=== PATIENT | male | born 1960 | race Caucasian/White ===

== ENCOUNTER → 2024-01-01 10:04 | Outpatient (CLI) | payer OTHER, SELFPAY ==
[2024-01-01 12:14] LABS: Add Manual Diff / Slide Review NO; Basophils Absolute Auto 100 /uL (0-100); Basophils Percent Auto 0.7 % (0-2); Eosinophils Absolute Auto 200 /uL (0-450); Eosinophils Percent Auto 2.2 % (2-4); Hematocrit 43.5 % (41-53); Hemoglobin 14.5 g/dL (13.5-17.5); Lymphocytes Absolute Auto 3100 /uL (1100-4500); Lymphocytes Percent Auto 42.5 % (25-40); Mean Corpuscular HGB Conc 33.4 % (30-36); Mean Corpuscular Hemoglobin 29.3 PG (26-34); Mean Corpuscular Volume 87.5 fL (80-100); Monocytes Absolute Auto 700 /uL (0-900); Neutrophils Absolute Auto 3400 /uL (1500-7000); Neutrophils Percent Auto 45.6 % (50-75); Platelet Count 313 X10^3/uL (150-400); Red Blood Cell Count 4.97 X10^6/uL (4.5-5.9); Red Cell Distribution Width 14.4 % (11.6-14.8); White Blood Cell Count 7.4 X10^3/uL (4.5-11.0)
[2024-01-01 12:15] LABS: Appearance Urine UA CLEAR; Bilirubin Urine UA NEGATIVE (NEGATIVE); Color Urine UA YELLOW; Glucose Urine UA 1+ g/dL (Negative); Ketones Urine UA NEGATIVE (NEGATIVE); Leukocyte Esterase Urine UA NEGATIVE (NEGATIVE); Nitrite Urine UA NEGATIVE (Negative); Occult Blood Urine UA NEGATIVE (Negative); Protein Urine UA NEGATIVE (Negative); Specific Gravity Urine UA 1.015 (1.000-1.035); Urobilinogen Urine UA 0.2 E.U./dL (0.2)
[2024-01-01 12:17] LABS: Urine Volume 10mL (spun)
[2024-01-01 12:19] LABS: Bacteria Urine None Seen; Culture Indicated Urine Cult Not Indicated; RBC Urine None Seen (0-5/HPF); Squamous Epithelial Cell Urine None Seen (0-5/HPF); WBC Urine None Seen (0-5/HPF)
[2024-01-01 12:56] LABS: BUN Creatinine Ratio 25.9 (6-22); Blood Urea Nitrogen 15 mg/dL (9-20); Carbon Dioxide 23 mmol/L (22-32); Chloride 100 mmol/L (98-107); Estimated Glomerular Filt Rate > 60 mL/min (>60); Glucose 176 mg/dL (80-110); HEMOLYSIS < 15 (0-50); Potassium 4.1 mmol/L (3.4-5.1); Sodium 136 mmol/L (137-145)
== END ==
PROVIDERS: PCP Internal Medicine; Referring Provider Orthopaedic Surgery; Visit Provider Orthopaedic Surgery
DX: Z01.818 Encounter for other preprocedural examination (principal); Z01.812 Encounter for preprocedural laboratory examination; N39.0 Urinary tract infection, site not specified
CPT/HCPCS: 36415; 80048; 81001; 85025; 93005; 93010

== ENCOUNTER 2024-02-21 10:55 | Day surgery (SDC) | payer OTHER, SELFPAY ==
[2024-02-13 12:54] VITALS: BMI 34.1
--- NOTE | 2024-02-21 06:40 | DI.RAD.S_ITS ---
PROCEDURE: XR SHOULDER LT MIN 2V INDICATIONS: RTSA TECHNIQUE: To views of the shoulder were acquired. COMPARISON: None. FINDINGS: Bones: Postsurgical changes consistent with left shoulder reverse arthroplasty. Hardware components are in expected position. No fractures or dislocations. No suspicious bony lesions. Visualized ribs appear intact. Soft tissues: No suspicious soft tissue calcifications. IMPRESSION: Expected postsurgical change for left shoulder reverse arthroplasty. Dictated by: Nelsy Bailon MD, PhD on 02/21/2024 at 14:15 Approved by: Nelsy Bailon MD, PhD on 02/21/2024 at 14:16
[2024-02-21 11:22] VITALS: BP 163/123; PULSE 97; RESP 18; TEMP 37.2; O2SAT 97; BMI 33.6
--- NOTE | 2024-02-21 11:39 | PM.PREOP ---
Pre-operative Note Interval Note History & Physical reviewed/Exam performed by Physician: Yes Changes to H&P: No
[2024-02-21] MEDS: ACETAMINOPHEN 325 MG TABLET 975 MG PO (11:41)
[2024-02-21] MEDS: INSULIN REGULAR 100 UNIT/ML 3 ML VIAL 10 UNIT SUBCUT (11:56)
--- NOTE | 2024-02-21 12:06 | SUR.PREOP ---
Block start time [1204] . Monitoring initiated and maintained throughout procedure. Oxygen and medications given per anesthesiologist instructions. Patient remained stable throughout procedure, no adverse reactions noted. Block end time [1207].
[2024-02-21] MEDS: CEFAZOLIN 2 GM/100 ML PREMIX 100 ML IV (12:20)
[2024-02-21] MEDS: TRANEXAMIC ACID 1,000 MG VIAL 1000 MG INJ (12:25)
--- NOTE | 2024-02-21 12:53 | SUR.OPER ---
Beach chair on padded OR bed. Head on gel donut secured with tape over gauze. Non-operative arm secured <90 degrees abduction on padded arm board. Pillow under knees. Safety belt at thigh. Cloth tape over blanket over lower legs.
[2024-02-21] MEDS: BUPIVACAINE 0.25% (PF) 30 ML, EPINEPHrine 0.15 MG INJ (13:10)
[2024-02-21] MEDS: LACTATED RINGERS 1,000 ML 42 ML IV ×2 (13:24→14:07)
--- NOTE | 2024-02-21 13:40 | PM.OP.1 ---
Operative Date/Time/Diagnoses Date of procedure: 02/21/24 Time of procedure: 13:40 Pre-op diagnosis: Left rotator cuff arthropathy Post-op diagnosis: same Procedure & Clinicians Procedure: Left reverse total shoulder arthroplasty Same procedure as scheduled: Yes Indications: Indications: This is a 63-year-old male who has rotator cuff arthropathy. Symptoms have been present for years, insidious onset. Patient has failed a reasonable attempt at conservative therapy. After extensive discussion in clinic, they wished to go forward with surgery. Risks and benefits were described including the risk of infection, bleeding, damage to internal structures including nerves. We also discussed the risk of failure of surgery and the need for revision surgery as well as the risk of anesthesia. The patient expressed understanding with these risks and wished to go forward with surgery. Surgeon: Felix Senior Land Lease Information Clerk: Ritu Busby Operative Notes Findings: Findings: Osteoarthritis of the glenoid and humeral head as well as a defient rotator cuff as noted on preoperative imaging and under direct visualization Closure Type: primary Specimen(s): none sent Prosthetic devices, grafts, tissues, transplants, or devices: Tornier implants Base plate: standard 25 mm, +3 mm offset Glenosphere: Standard 36 mm Stem: Perform 3 Poly: +0, 10 degree Estimated Blood Loss (mL): 50 Procedure in detail: Patient was seen in the preoperative holding unit. The correct left shoulder was identified and marked with my initials. Again we discussed the risks and benefits of surgery and they wished to go forward with surgery. The patient was brought back to the operating room and placed supine on the operating table. Smooth endotracheal intubation was performed by anesthesia. All prominences were padded and they were placed into the beach chair position. Intravenous antibiotics were given. The left shoulder was then prepped with the standard sterile preparation and draping. A time-out was then performed in my initials were again identified on the correct shoulder. 1 g of IV tranexamic acid was given. A standard deltopectoral incision was made. Skin flaps were made. The cephalic vein was identified and retracted laterally. This was protected throughout the remainder of the case. Sharp dissection was made along the deltoid, subacromial and subcoracoid space to release adhesions. The conjoined tendon was identified and the axillary nerve was palpated and continuous using the tug test. It was protected throughout the remainder of the case. A brown retractor was placed underneath the deltoid muscle and a darach retractor underneath the conjoint tendon. The subscapularis muscle was ntoed to be torn. The biceps tendon was identified in the bicipital groove. This was released from its sheath, and taken from its origin on the glenoid and tied into the pectoralis tendon for a solid tenodesis. The coracohumeral ligament was released at the base of the coracoid. The shoulder was then dislocated. Osteophytes were removed using combination of rongeur and osteotome. The rotator cuff was noted to be insufficient. An intramedullary guide was used set at version of 20?. Using an oscillating saw a conservative humeral head cut was made. Impaction reamers were reamed up to a size 3 stem with a built-in angle 135?. A neck protector was placed. Attention was then turned to the glenoid. After retracting the humeral head posteriorly a circumferential release was performed of the capsule with protection of the axillary nerve. The labrum was then released starting at the biceps anchor and going around the rim a small amount of triceps was released from the inferior glenoid. A center guide pin was then placed using the guide, followed by Reamer. After adequate cartilage was removed the boss was reamed and the centeral hole was drilled and measured. The base plate was then implanted and screwed into place. The peripheral screws were then sequentially drilled, measured, and placed. A 36 standard glenosphere was then selected and screwed into place onto the base plate. Turning back to the humerus, the humeral head was delivered and trialed with a 0, 10 degree polyethylene. The arm was taken through range of motion and this was felt to be stable. The trial was then removed and a dilute Betadine wash was then performed with 1 L of sterile saline. The final stem was then impacted into the humerus. The shoulder was then reduced and again brought through range of motion and was felt to be stable. The skin was closed with 2-0 vicryl and 3-0 Monocryl followed by Aquacel dressing. Patient was awoken from anesthesia and brought back to the postoperative recovery unit without issue. They were placed into a sling. Assisting participation: This operation could not have been safely performed (without compromising the technical results or length of the procedure) without the assistance of a skilled surgical services tech. The surgical services tech was medically necessary for proper positioning, retraction and manipulation of instruments, proper exposure, graft prep, and manipulation of tissue. Complications: none Post-operative Condition: stable Disposition: PACU Plan for aftercare: Postoperative instructions: Sling to remain on for 6 weeks. No external rotation past neutral for 6 weeks. Okay for the sling to come off for shower. Okay to shower over the Aquacel dressing. If any water gets underneath the dressing, remove the dressing. First postoperative visit in 2 weeks.
[2024-02-21 13:43] VITALS: BP 119/89; PULSE 67; RESP 12; TEMP 36.8; O2SAT 94
[2024-02-21 13:56] VITALS: BP 130/91; PULSE 76; RESP 12; TEMP 36.7; O2SAT 96
[2024-02-21] MEDS: ONDANSETRON 4 MG/2 ML INJ IV (14:00)
[2024-02-21] MEDS: HYDROMORPHONE 1 MG INJ IV (14:00)
[2024-02-21] MEDS: OXYCODONE IR 5 MG TABLET PO ×2 (14:00→14:35)
[2024-02-21 14:09] VITALS: PULSE 70; RESP 15; TEMP 36.6; O2SAT 96
[2024-02-21 14:16] VITALS: BP 137/89; PULSE 70; RESP 14; TEMP 36.4; O2SAT 98
[2024-02-21] MEDS: hydrOXYzine 50 MG/ML INJ 25 MG IM (14:32)
[2024-02-21 15:15] VITALS: BP 152/68; PULSE 92; RESP 18; O2SAT 97
== END 2024-02-21 15:15 | disposition home or self-care (01) ==
LOC: OR 10:56 → AC 10:57
PROVIDERS: PCP Internal Medicine; Referring Provider Orthopaedic Surgery; Visit Provider Orthopaedic Surgery
PROC: (CPT 23472; principal; 2024-02-21 12:45)
DX: M19.012 Primary osteoarthritis, left shoulder (principal); G89.18 Other acute postprocedural pain
CPT/HCPCS: 23472; 64415; 73030; 82962; C1776; J0171; J0330; J0690; J1100; J1170; J1885; J2250; J2405; J2704; J3010; J3410

== ENCOUNTER 2024-10-02 05:57 | Day surgery (SDC) | payer OTHER, SELFPAY ==
[2024-09-23 14:18] VITALS: BMI 32.7
[2024-10-02] VITALS (10 sets, daily range): BP systolic 118–167; BP diastolic 67–107; PULSE 61–93; RESP 12–18; TEMP 36.2–36.9; O2SAT 93–98; BMI 32.7
[2024-10-02] MEDS: LACTATED RINGERS 1,000 ML 42 ML IV (07:04)
[2024-10-02] MEDS: ACETAMINOPHEN 325 MG TABLET 975 MG PO (07:04)
--- NOTE | 2024-10-02 07:35 | PM.HP.1 ---
History of Present Illness History of Present Illness Date Patient Seen: 10/02/24 Time Patient Seen: 07:35 Chief complaint: LEFT Reverse TSA Narrative: This is a pleasant 63-year-old male who is here today for revision of his left reverse total shoulder arthroplasty for instability. He has been experiencing instability events on a daily basis. Risks were previously discussed with him. He has not had any significant changes since I last talked with them. 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) History of lumbar surgery (2019) Hx of shoulder surgery (2017) Hx of shoulder surgery (2007) Hx of tonsillectomy Hx of umbilical hernia repair Hx of LASIK (1999) Social History household members: spouse Smoking Status: Former smoker alcohol intake: current Meds Home Medications and Allergies Home Medications Medication Instructions Recorded Confirmed Type atorvastatin 20 mg tablet 20 mg PO BEDTIME 02/13/24 10/02/24 History cyclobenzaprine 5 mg tablet 10 mg PO BEDTIME PRN Pain 02/13/24 10/02/24 History glipizide 2.5 mg tablet, extended 2.5 mg PO DAILY 02/13/24 10/02/24 History release 24 hr ibuprofen 200 mg tablet 200 mg PO Q6H PRN Pain 02/13/24 10/02/24 History levothyroxine 175 mcg tablet 150 mcg PO DAILY 02/13/24 10/02/24 History lisinopril 10 mg tablet 10 mg PO DAILY 02/13/24 10/02/24 History metformin 500 mg tablet,extended 2,000 mg PO QAM 02/13/24 10/02/24 History release 24 hr Allergies Allergy/AdvReac Type Severity Reaction Status Date / Time No Known Drug Allergies Allergy Verified 10/02/24 06:54 Review of Systems Review of Systems ROS: Yes All systems reviewed with the patient and are negative except as otherwise documented Exam Vital Signs (past 8 hours): - 10/02/24 06:47 Temperature 97.5 F L Pulse Rate 61 Respiratory Rate 16 Blood Pressure 167/107 H Pulse Oximetry 98 Oxygen Delivery Method Room Air Oxygen Delivery Method Room Air Narrative Exam Narrative: HEENT: Head atraumatic eyes anicteric moist mucous membranes Cardiovascular: Palpable peripheral pulses extremities are warm and well perfused Respiratory: Breathing comfortably on room air Psychiatric: Appropriate mood and affect Neuro: No acute deficits Musculoskeletal: Exam of the left upper extremity demonstrates incision well healed no signs of erythema fluctuance drainage or any other signs of infection. Has good range of motion of the shoulder. 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
[2024-10-02] MEDS: CEFAZOLIN 2 GM/100 ML PREMIX 100 ML IV (07:47)
[2024-10-02] MEDS: TRANEXAMIC ACID 1,000 MG in SODIUM CHLORIDE 0.9% 100 ML 200 MG IV (08:08)
--- NOTE | 2024-10-02 08:17 | SUR.OPER ---
Beach chair with Schlein shoulder positioner. Lower body on padded OR bed. Head in foam padded head cradle, secured with straps. Non-operative arm secured <90 degrees abduction. Pillow under knees. Safety belt at thigh. Cloth tape over blanket over lower legs.
[2024-10-02] MEDS: BUPIVACAINE 0.25% (PF) 30 ML, EPINEPHrine 0.15 MG INJ (08:27)
--- NOTE | 2024-10-02 09:09 | P.OP_ITS ---
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 Symptoms have been present for a few months. Patient has failed a reasonable attempt at conservative therapy. After extensive discussion in clinic, they wished to go forward with surgery. Risks and benefits were described including the risk of infection, bleeding, damage to internal structures including nerves. We also discussed the risk of failure of surgery and the need for revision surgery as well as the risk of anesthesia. The patient expressed understanding with these risks and wished to go forward with surgery. Surgeon: Felix Senior Centrifugal Screen Tender: Arely Gr Anesthesia Type: General Operative Notes Findings: Findings: Easily dislocatable reverse total shoulder arthroplasty Closure Type: primary Specimen(s): none sent Prosthetic devices, grafts, tissues, transplants, or devices: Tornier implants Glenosphere: 42 Poly: +6, 10 degree, 55% coverage Estimated Blood Loss (mL): 50 Blood products transfused: none Procedure in detail: Patient was seen in the preoperative holding unit. The correct left shoulder was identified and marked with my initials. Again we discussed the risks and benefits of surgery and they wished to go forward with surgery. The patient was brought back to the operating room and placed supine on the operating table. Smooth endotracheal intubation was performed by anesthesia. All prominences were padded and they were placed into the beach chair position. Intravenous antibiotics were given. The left shoulder was then prepped with the standard sterile preparation and draping. A time-out was then performed in my initials were again identified on the correct shoulder. 1 g of IV tranexamic acid was given. A standard deltopectoral incision was made. Skin flaps were made. The cephalic vein was identified and retracted laterally. This was protected throughout the remainder of the case. Sharp dissection was made along the deltoid, subacromial and subcoracoid space to release adhesions. The conjoined tendon was identified and the axillary nerve was palpated and continuous using the tug test. It was protected throughout the remainder of the case. A brown retractor was placed underneath the deltoid muscle and a darach retractor underneath the conjoint tendon. The subscapularis muscle was ntoed to be insufficient. The shoulder was then dislocated. Using combination of a drill bit and a 6.5 mm screw, the old polyethylene was removed. There were no abnormal wear patterns noted Attention was then turned to the glenoid. Minimal release was done and the glenosphere was then removed. We trialed with a size 42 and then a dilute Betadine wash was done for 2 minutes. The final size 42 glenosphere was then impacted and screwed into place. Turning back to the humerus, the humeral head was delivered and trialed with a +6, 10 degree, 55% coverage polyethylene. The arm was taken through range of motion and this was felt to be stable. The trial was then removed and a dilute Betadine wash was then performed with 1 L of sterile saline. Note the vein was intact throughout the case, The deltopectoral interval was then closed with #2 Ethibond On the medial side of the vein. I also put 1 single suture more superficial for identification of the deltopectoral interval a future approach if needed. The skin was closed with 2-0 vicryl and 3-0 Monocryl followed by Aquacel dressing. Patient was awoken from anesthesia and brought back to the postoperative recovery unit without issue. They were placed into a sling. Assisting participation: This operation could not have been safely performed (without compromising the technical results or length of the procedure) without the assistance of a skilled nursing surgical services director. The nursing surgical services director was medically necessary for proper positioning, retraction and manipulation of instruments, proper exposure, graft prep, and manipulation of tissue. Complications: none Post-operative Condition: stable Disposition: PACU Plan for aftercare: Postoperative instructions: Sling to remain on for 2 weeks. Okay for the sling to come off for shower. Okay to shower over the Aquacel dressing. If any water gets underneath the dressing, remove the dressing. First postoperative visit in 2 weeks. No restrictions after 6 weeks
== END 2024-10-02 11:09 | disposition home or self-care (01) ==
LOC: OR 05:58 → AC 05:58
PROVIDERS: PCP Internal Medicine; Referring Provider Orthopaedic Surgery; Visit Provider Orthopaedic Surgery
PROC: (CPT 23474; principal; 2024-10-02 07:45)
DX: M25.312 Other instability, left shoulder (principal); G89.18 Other acute postprocedural pain; Z96.612 Presence of left artificial shoulder joint; M75.02 Adhesive capsulitis of left shoulder
CPT/HCPCS: 23474; 64415; C1776; J0171; J0690; J1100; J2405; J2704; J3010